=== PATIENT | male | born 1955 | race Caucasian/White ===

== ENCOUNTER 2016-11-20 10:54 | Day surgery (SDC) | payer BC, OTHER ==
[~2016-11-20 10:54] MED LIST: RINGERS SOLUTION,LACTATED 1,000 ML IV PRN
--- OUTSIDE RECORDS SUMMARY | 2016-11-20 10:58 | XMS REPORT | Continuity of Care Document ---
:1955 Author Organization [facility] ([facility]) Address [address] [place] [address] Phone [phone] Care Team Providers Name Role Phone Domenic Munoz Primary Care Provider [phone] Source Comments This disclosure is being made pursuant to the Care Everywhere program, applicable federal and state laws, and may not contain all informaitonavailable regarding this patient.[facility] ([facility]) Active Allergies and Adverse Reactions Allergen Noted Date Severity Reactions Comments No Known Allergies 08/06/2012 NO REACTION Current Medications No known medications Active Problems Not on file Social History Tobacco Use Types Packs/Day Years Used Date Never Smoker Smokeless Tobacco: Never Used Alcohol Use Drinks/Week oz/Week Comments Yes Drinks socially. Plan of Care Health Maintenance Due Date Last Done Comments HCV Screening 1955 Hepatitis B Vaccine (1 of 3 - Primary Series) 1955 Tdap Vaccine 1967 Lipid Disorder Screening 1974 MMR Vaccine 1974 Td Vaccine 1974 Colonoscopy 2006 Prostate Cancer Screening 2006 Influenza Vaccine: Seasonal (#1) 03/20/2016 Zoster Vaccine 2016 Results from Last 3 Months Not on file
[2016-11-20] MEDS ORDERED: RINGERS SOLUTION,LACTATED 1,000 ML IV ONE (11:20)
[2016-11-20] MEDS ORDERED: RINGERS SOLUTION,LACTATED 1,000 ML IV PRN (12:59)
[2016-11-20 13:50] VITALS: BP 121/76
--- NOTE | 2016-11-20 18:33 | OR ---
Operative Report - Dictated Report Narrative: OPERATIVE REPORT DATE OF OPERATION: 11/20/2016 PREOPERATIVE DIAGNOSIS: No recent dedicated colon studies. Family history of colon cancer. POSTOPERATIVE DIAGNOSIS: Sigmoid diverticulosis OPERATION: Colonoscopy SURGEON: Patti Collier MD ANESTHESIA: JORDY Rodriguez CRNA INDICATIONS FOR PROCEDURE: The patient is a 61-year-old male presents self referred. His last colonoscopy in 2006 revealed diverticulosis and internal hemorrhoids. His grandmother had colon cancer at age 70. He is currently asymptomatic. FINDINGS: Sigmoid diverticulosis otherwise normal colonoscopy to the cecum NARRATIVE OF PROCEDURE: The patient was identified in the holding area, and prior to the administration of anesthetic, a multidisciplinary timeout was observed. With the patient in the left lateral position and after the administration of intravenous sedation, the perineum was inspected. There was no evidence of pilonidal disease or skin breakdown. The external appearance of the anus was normal. Sphincter tone was good. The flexible fiberoptic colonoscope was inserted into the rectum which was insufflated with air. The rectal mucosa and submucosal vascular pattern appeared normal, the prep was seen to be complete. The scope was advanced through the sigmoid colon, which contained several not impacted noninflamed diverticular openings. Scope was advanced up the descending colon, and around the splenic flexure where the triangular haustral architecture of the transverse colon was seen. The scope was advanced across the transverse colon, around the hepatic flexure to the cecum, where the confluence of tenia and the ileocecal valve were identified. The mucosa at this level appeared normal. The scope was then slowly withdrawn in a circular fashion so that all aspects of colonic mucosa were inspected. The colon was normal in course and caliber. The haustral architecture appeared well preserved throughout with no evidence of external compression. The mucosa and submucosal vascular pattern appeared normal, specifically there was no gross evidence to suggest colitis or inflammatory bowel disease and no AV malformations were seen. The diverticulosis was mild to moderate in degree and confined primarily to the sigmoid colon. No polyps were encountered. The scope was gradually withdrawn to the level of the rectum. As much insufflated air as possible was removed. The scope was withdrawn from the patient and the procedure terminated. The patient tolerated the anesthetic and procedure well without complication and was transferred back to the ambulatory surgery area awake and in stable condition. The patient remained stable throughout a period of postoperative observation. He denied abdominal discomfort, was able to tolerate by mouth intake, and was up without assistance. I shared the operative findings with the patient and he was given copies of the photographs which appear in the medical record. He was discharged home with instructions not to engage in hazardous activity today, but may resume normal activity tomorrow, and advance diet as tolerated. He is to continue those medications as listed in the history and physical exam. RECOMMENDATION: Colon surveillance in 10 years depending upon findings and symptoms Reviewed and electronically signed
== END 2016-11-20 10:55 | disposition home or self-care (01) ==
LOC: AMB 10:54
PROVIDERS: ATTEND Surgery
PROC: 0DJD8ZZ Inspection of Lower Intestinal Tract, Via Natural or Artificial Opening Endoscopic (ICD-10-PCS; principal; 2016-11-20 12:15)
DX: Z12.11 Encounter for screening for malignant neoplasm of colon (principal); K57.30 Diverticulosis of large intestine without perforation or abscess without bleeding; K21.9 Gastro-esophageal reflux disease without esophagitis; Z87.891 Personal history of nicotine dependence; Z68.29 Body mass index [BMI] 29.0-29.9, adult; Z80.0 Family history of malignant neoplasm of digestive organs